=== PATIENT | female | born 1930 | race Caucasian/White ===

== ENCOUNTER → 2016-11-29 | Outpatient (CLI) | payer OTHER, MEDICARE | LOC: BHCLAF 11:30 | PROVIDERS: ATTEND Internal Medicine Interventional Cardiology | DX: I42.9 Cardiomyopathy, unspecified (principal); J90 Pleural effusion, not elsewhere classified; J44.9 Chronic obstructive pulmonary disease, unspecified | CPT/HCPCS: 71020-PO; 93306-PO ==

== ENCOUNTER → 2016-11-29 | Outpatient (CLI) | payer OTHER, MEDICARE ==
--- NOTE | 2016-11-29 13:37 | DX ---
Chest, Two Views at 1225 hours on November 29, 2016 History: I50.9, congestive heart failure. Comparison: October 2010. Findings: Cardiac silhouette is moderately enlarged. Atherosclerotic aorta. New moderate left pleural effusion identified. Hyperinflation of the lungs consistent with emphysema. Midthoracic kyphosis. Pl eural-parenchymal scarring bilateral lung apices. IMPRESSION: 1. New moderate left pleural effusion. 2. COPD. 3. Consider CT chest with contrast imaging.
== END ==
LOC: CIMAGING 12:08
PROVIDERS: ATTEND Internal Medicine Interventional Cardiology
DX: J90 Pleural effusion, not elsewhere classified (principal); J44.9 Chronic obstructive pulmonary disease, unspecified
CPT/HCPCS: 71020-PO

== ENCOUNTER → 2016-12-07 | Outpatient (CLI) | payer OTHER, MEDICARE ==
[~2016-12-07] MED LIST: IOPAMIDOL (ISOVUE-300) 100 ML BTL IV ONE
--- NOTE | 2016-12-07 13:56 | CT ---
CT Chest, With Contrast History: 86 year old with pleural effusion, shortness of breath, history of lung cancer with left low er lobectomy. Comparison: PA and lateral chest November 29, 2016, CT chest November 09, 2010. Renal ultrasound January 26, 2014. Technique: Axial images were obtained through the chest following the uneventful intravenous administ ration of 75 mL Isovue-300. Coronal MIPs were performed. Dose reduction techniques were utilized. Cre atinine is 1.1. Findings: A moderate left and small right pleural effusion is present. Left lower lobectomy changes are noted. There are new tree-in-bud nodules in the medial segment right middle lobe (series 3 images 147 through 157 e.g.). There are also new tree-in-bud nodules in the posterior right lower lobe (ser ies 3 image 140 e.g.). Previously noted lateral right upper lobe nodules are no longer visible. There is minimal peribronchial thickening in the inferolateral right upper lobe. Mild aneurysmal dilatatio n of the ascending aorta, measuring 4.0 cm, is unchanged with no dissection. Mild cardiomegaly is sta ble. A 1.4 x 1.0 cm fluid density structure at the right posterolateral aspect of the distal thoracic aorta (series 4 image 209) is unchanged, as is an adjacent fluid-filled structure, both likely relat ed to the thoracic duct. A left renal cyst is not significantly changed since the comparison ultrasou nd. Probable bone island in the posterior left fourth rib is unchanged. There is scoliosis of the tho racic spine and multilevel degenerative change is stable. A small area sclerosis in the inferior aspe ct of T9 is new since the comparison (series 4 image 141) as well as a small carotic region and T10 ( series March 01, 1956). There is a sclerotic lesion in L4 suspicious for metastasis (series 4-94). Impression: 1. Sclerotic osseous lesions suspicious for metastases. 2. Scattered new tree-in-bud nodules most likely inflammatory or infectious. Short-term follow-up CT is recommended in three months to assess for resolution. 3. Moderate left and small right pleural effusion. 4. Additional findings as above. 5. Stable cardiomegaly. 6. Stable mild aneurysmal dilatation of the ascending aorta. 7. Additional findings as above. Findings discussed with Debra Infante's medical scientist today, December 07, 2016, at 1358 ho urs.
== END ==
LOC: CIMAGING 10:11
PROVIDERS: ATTEND Internal Medicine Interventional Cardiology
DX: J90 Pleural effusion, not elsewhere classified (principal); R06.02 Shortness of breath; R91.8 Other nonspecific abnormal finding of lung field; I51.7 Cardiomegaly; I71.2 Thoracic aortic aneurysm, without rupture; Z85.118 Personal history of other malignant neoplasm of bronchus and lung; Z90.2 Acquired absence of lung [part of]
CPT/HCPCS: 71260; Q9967

== ENCOUNTER → 2017-01-23 | Outpatient (CLI) | payer OTHER, MEDICARE | LOC: CIMAGING 15:01 | PROVIDERS: ATTEND Physician Assistant Medical | DX: J90 Pleural effusion, not elsewhere classified (principal); I51.7 Cardiomegaly | CPT/HCPCS: 71020-PO ==

== ENCOUNTER → 2017-02-18 | Outpatient (CLI) | payer OTHER, MEDICARE | LOC: BHFA 13:30 | PROVIDERS: ATTEND Internal Medicine Cardiovascular Disease | DX: Z01.810 Encounter for preprocedural cardiovascular examination (principal); R06.02 Shortness of breath | CPT/HCPCS: 78452; 93017; A9500; J2785 ==

== ENCOUNTER → 2017-07-05 | Outpatient (CLI) | payer OTHER, MEDICARE ==
[~2017-07-05] MED LIST changes: +DEPO METHYLPREDNISOLONE 40 MG/ML SDV ONE; +IOPAMIDOL (ISOVUE 370) 100 ML BTL IV ONE; -IOPAMIDOL (ISOVUE-300) 100 ML BTL IV ONE; +LIDOCAINE 1% 300 MG/30 ML SDV ONE; +ROPIVACAINE HCL 150 MG/30 ML INJ ONE
== END ==
LOC: FIMAGING 10:18
PROVIDERS: ATTEND Orthopaedic Surgery
PROC: 3E0U33Z Introduction of Anti-inflammatory into Joints, Percutaneous Approach (ICD-10-PCS; principal; 2017-07-05)
PROC: 3E0U3BZ Introduction of Anesthetic Agent into Joints, Percutaneous Approach (ICD-10-PCS; principal; 2017-07-05)
CPT/HCPCS: 20610; J1030; J2795; Q9967

== ENCOUNTER → 2017-09-23 | Outpatient (CLI) | payer OTHER, MEDICARE | LOC: CIMAGING 10:14 | PROVIDERS: ATTEND Internal Medicine Critical Care Medicine | DX: J90 Pleural effusion, not elsewhere classified (principal); Z85.118 Personal history of other malignant neoplasm of bronchus and lung; C79.51 Secondary malignant neoplasm of bone; J44.9 Chronic obstructive pulmonary disease, unspecified; I51.7 Cardiomegaly | CPT/HCPCS: 71020-PO ==

== ENCOUNTER → 2017-10-25 | Outpatient (CLI) | payer OTHER, MEDICARE | LOC: FIMAGING 09:40 | PROVIDERS: ATTEND Orthopaedic Surgery | PROC: 3E0U3BZ Introduction of Anesthetic Agent into Joints, Percutaneous Approach (ICD-10-PCS; principal; 2017-10-25) | PROC: 3E0U33Z Introduction of Anti-inflammatory into Joints, Percutaneous Approach (ICD-10-PCS; principal; 2017-10-25) | DX: M25.551 Pain in right hip (principal) | CPT/HCPCS: 20610; J1030; J2795; Q9967 ==

== ENCOUNTER → 2018-09-24 | Outpatient (CLI) | payer OTHER, MEDICARE | LOC: CIMAGING 13:32 | PROVIDERS: ATTEND Internal Medicine | DX: M79.644 Pain in right finger(s) (principal) | CPT/HCPCS: 36415-PO; 73140-PO ==